=== PATIENT | female | born 1950 | race American Indian/Alaskan Native ===

== ENCOUNTER 2021-04-12 06:58 | Day surgery (SDC) | payer MEDICARE ==
[2021-04-12] MEDS ORDERED: SODIUM CHLORIDE 0.9% 500 ML 500 ML IV SCH (08:00)
[2021-04-12 08:13] LABS: Basophils % (Auto) 0.6 % (0.0-1.8); Eosinophils # (Auto) 0.6 K/mm3 (0.0-0.4); Hematocrit 34.2 % (30.3-42.9); Hemoglobin 11.4 gm/dl (10.1-14.3); Lymphocytes # (Auto) 1.3 K/mm3 (1.2-5.4); Lymphocytes % (Auto) 29.1 % (13.4-35.0); Mean Corpuscular HGB Conc 33 % (30-34); Mean Corpuscular Volume 97 fl (79-97); Monocytes # (Auto) 0.4 K/mm3 (0.0-0.8); Monocytes % (Auto) 9.1 % (0.0-7.3); Platelet Count 129 K/mm3 (140-440); Red Blood Count 3.54 M/mm3 (3.65-5.03); Red Cell Distribution Width 18.3 % (13.2-15.2)
[2021-04-12 08:27] LABS: Calcium 9.5 mg/dL (8.4-10.2)
[2021-04-12 08:28] LABS: INR 1.14 (0.87-1.13)
[2021-04-12] MEDS ORDERED: ASPIRIN EC 325 MG TAB PO SCH (09:00)
[2021-04-12] MEDS ORDERED: DOBUTamine 100 MG in DEXTROSE 5% IN WATER 92 ML IV ONE (09:04)
[2021-04-12] MEDS ORDERED: fentaNYL 100 MCG/2 ML INJ ONE (09:30)
[2021-04-12] MEDS ORDERED: HEPARIN 10,000 UNITS/10 ML VIAL ONE (09:30)
[2021-04-12] MEDS ORDERED: HEPARIN/NS 5000 UNIT/500ML 1,000 ML IR ONE (09:30)
[2021-04-12] MEDS ORDERED: MIDAZOLAM 2 MG/2 ML INJ ONE (09:30)
[2021-04-12] MEDS ORDERED: LIDOCAINE (2%) 20 MG/1 ML VIAL 20 ML MDV INFILTRATI ONE (09:31)
[2021-04-12] MEDS: PHENYLEPHRINE/NS 1,000 MCG/10 ML SYRINGE (OR USE) IV ONE ×2 (10:11→10:25)
[2021-04-12] MEDS ORDERED: HYDROcodone/ACETAMINOPHEN 5-325 MG TAB PO PRN (11:47)
[2021-04-12] MEDS ORDERED: traMADol 50 MG TAB PO PRN (11:47)
--- NOTE | 2021-04-12 11:51 | Short Stay Summary ---
Short Stay Documentation Date of service: 04/12/21 - History Principal diagnosis: Severe Aortic Stenosis H&P: obtained from office Past Medical History: CAD, diabetes, dialysis, ESRD, hyperlipidemia, other (CMP, severe , PVD) Past Surgical History: no valve replacement, no CABG, no PTCA Social history: no smoking, no alcohol abuse - Allergies and Medications Current Medications: Allergies EDNA Inhibitors Allergy (Verified 08/19/16 13:44) Itching amoxicillin trihydrate [From Augmentin] Allergy (Verified 08/19/16 13:44) Itching potassium clavulanate [From Augmentin] Allergy (Verified 08/19/16 13:44) Itching Home Medications Medication Instructions Recorded Confirmed Last Taken Type AtorvaSTATin [Lipitor] 40 mg PO QDAY 08/19/16 04/12/21 04/11/21 History Cinacalcet HCl [Sensipar] 90 mg PO DAILY 08/19/16 04/12/21 04/11/21 History Insulin Detemir (Nf) [Levemir 6 unit SQ QHS 08/19/16 04/12/21 04/10/21 History Flextouch (Nf)] Vitamin B Complex Vit C No.4 150 mg PO QDAY 08/19/16 04/12/21 04/11/21 History [Super B Complex] Aspirin EC [Halfprin EC] 81 mg PO QDAY 04/12/21 04/12/21 04/11/21 History Fludrocortisone [Florinef Tab] 0.1 mg PO QDAY 04/12/21 04/12/21 04/11/21 History sevelamer HCL [Sevelamer HCl] 800 mg PO TID 04/12/21 04/12/21 04/11/21 History Active Medications Aspirin (Aspirin Ec 325 Mg Tab) 325 mg PO ONCE TY Stop: 04/12/21 18:00 Last Admin: 04/12/21 08:30 Dose: 325 mg Documented by: Sodium Chloride (Nacl 0.9% 500 Ml) 500 mls @ 50 mls/hr IV DIRECT TY Stop: 04/12/21 17:59 Last Admin: 04/12/21 09:21 Dose: 50 mls/hr Documented by: Dobutamine HCl 100 mg/ (Dextrose) 100 mls @ 28.11 mls/hr IV ONCE ONE; Protocol Stop: 04/12/21 12:37 Last Admin: 04/12/21 10:14 Dose: 100 mls Documented by: - Physical exam General appearance: no acute distress Integumentary: no rash HEENT: Atraumatic, EOMI, Mucous membr. moist/pink Lungs: Clear to auscultation Heart: Normal S1, Normal S2, No murmurs Gastrointestinal: normal Extremities: pulses intact, No edema Neurological: Normal tone, Sensation intact - Brief post op/procedure progress note Date of procedure: 04/12/21 Pre-op diagnosis: Severe Aortic Stenosis Post-op diagnosis: same Surgeon: SCOTTIE BARRAZA Estimated blood loss: minimal Pathology: none Condition: stable - Hospital course Hospital course: Pt presented for elective cardiac catheterization with dobutamine to differentiate between false and true aortic stenosis with LV dysfunction. See cath report for detailed findings. BP borderline-low following procedure (close to baseline). Pt is otherwise stable with no complaints. Follow-up with Dr. Barraza in 1-2 weeks ([phone]). - Disposition Condition at discharge: Good Disposition: 50 HOSPICE/HOME - Discharge Diagnoses (1) Severe aortic stenosis Status: Chronic Short Stay Discharge Plan Activity: advance as tolerated Diet: low fat, low cholesterol, low salt, diabetic, renal Wound: per your surgeon's advice Follow up with: ADELFO ROSS MD [Primary Care Provider] - 7 Days SCOTTIE BARRAZA MD [Staff Physician] - 7 Days
--- NOTE | 2021-04-12 12:54 | Cardiac Catherization Report ---
DATE OF SERVICE: 04/12/2021 LEFT HEART CATHETERIZATION CLINICAL INFORMATION: A 70-year-old -[place] female with diabetes, cholesterol, end-stage renal disease, hemodialysis, has severe LV dysfunction, echocardiogram with significant aortic stenosis with fixed defects on stress test, here for a left heart cath. DESCRIPTION OF PROCEDURE: Procedure was done with moderate sedation started at 9:40, finished at 10:10, thirty minutes of moderate sedation. Next, procedure was done via the right common femoral artery, sterile technique, local anesthesia, 6 Azerbaij[place] groin sheath inserted. Left system engaged with JR4 catheter. FINDINGS: Left main is a medium caliber vessel, patent with calcification. LAD is a medium caliber vessel, heavily calcified proximally. Then, diagonal 1 ostial has a 95% lesion, medium caliber vessel and then after diagonal 1, there is a focal 95% lesion in the mid LAD. The rest of the LAD is patent. Circumflex proximally 90%, then OM1 ostial has 95% and then the circ OM2 is patent. Mild calcification noted in the distal circ system. RCA engaged with JR4 catheter, is a medium caliber vessel, patent. LV gram done in ESTONIAN and GALAVIZ view, shows severe LV dysfunction with EF 25%, LVEDP of 21 mmHg. The patient's initial aortic pressure was 99/47, aortic 122 with LVEDP of 24 mmHg. The patient had a mean gradient 22 mmHg. The patient with addition of dobutamine at 10 and 20 mcg. The patient's gradient went up to 150 mm in the LV with an aortic pressure 97 with a mean gradient of 36.4. The patient pullback had no gradient between the catheters. Catheters all taken over a guidewire, 6 Azerbaijani groin sheath discontinued, manual pressure held. No hematoma, no bleeding. SUMMARY: Significant calcified 3-vessel disease, left main patent. LAD calcified proximal and mid 95%, ostial diagonal 195%, medium caliber vessel. Circumflex proximal 95%, OM1 95%. OM2 patent. RCA patent. Severe LV dysfunction. The patient had with dobutamine, increase in gradient from 22 mm to 36 mm mean gradient across the aortic valve suggestive of significant severe aortic stenosis with low EF. RECOMMENDATIONS: The patient will be referred to [facility] for bypass surgery and valve replacement. Discussed in detail with the patient, patient's son and daughter. TID: [id number] RECEIPT: [id number] LASHAE/JOEY/ADRIAN BLOUNTD
[2021-04-12 17:04] VITALS: BP 106/57
--- NOTE | 2021-04-13 09:17 | Electrocardiograph Report ---
[facility] Test Date: 2021-04-12 Test Time: 08:17:34 Pat Name: JONY CONTEH Department: Room: Gender: F [employer] Sales Representative: NATALIIA : 1950 Requested By: JHONY BARRAZA Order Number: [id number] Reading MD: Jhony Barraza Measurements Intervals [place] Rate: 79 P: 32 AR: 202 QRS: -17 QRSD: 95 T: 95 QT: 405 QTc: 466 Interpretive Statements Sinus rhythm Atrial premature complexes Probable left ventricular hypertrophy No previous ECG available for comparison Electronically Signed On 04-13-2021 9:16:57 EDT by Jhony Barraza
== END 2021-04-12 14:05 | disposition hospice, home (50) ==
LOC: CATHLABREC 06:58
PROVIDERS: ATTEND Internal Medicine
DX: I25.10 Atherosclerotic heart disease of native coronary artery without angina pectoris (principal); R94.31 Abnormal electrocardiogram [ECG] [EKG]; I35.0 Nonrheumatic aortic (valve) stenosis; I42.0 Dilated cardiomyopathy; I12.0 Hypertensive chronic kidney disease with stage 5 chronic kidney disease or end stage renal disease; N18.6 End stage renal disease; E11.22 Type 2 diabetes mellitus with diabetic chronic kidney disease; E78.00 Pure hypercholesterolemia, unspecified; E66.9 Obesity, unspecified; Z79.82 Long term (current) use of aspirin; Z79.4 Long term (current) use of insulin; Z79.899 Other long term (current) drug therapy; Z88.1 Allergy status to other antibiotic agents; Z88.8 Allergy status to other drugs, medicaments and biological substances; Z68.31 Body mass index [BMI] 31.0-31.9, adult
CPT/HCPCS: 36415; 80048; 85025; 85610; 85730; 93005; 93458; 99156; 99157; C1894; J1250; J1644; J2250; J2370; J3010; J7040; Q9967